=== PATIENT | female | born 1995 | race African-American/Black ===

== ENCOUNTER 2022-09-07 03:33 | Emergency (ER) | payer MEDICAID ==
[~2022-09-07] VITALS: Ht 165.1 cm; Wt 73.5 kg
[2022-09-07 04:20] LABS: HEMATOCRIT. 42.3 % (36.0-48.0); HEMOGLOBIN. 14.2 g/dL (12.0-16.0); MEAN CORPUSCULAR HEMOGLOBIN 30.5 pg (28.0-32.0); PLATELET 326 x1000/uL (130-400); RED BLOOD CELL COUNT 4.65 mill/uL (4.2-5.4)
[2022-09-07 04:25] LABS: CHLORIDE 100 mEq/L (98-107)
[2022-09-07 04:39] LABS: HCG SCREEN NEGATIVE
[2022-09-07 05:01] LABS: PLATELET ESTIMATE NORMAL
[2022-09-07] MEDS ORDERED: KETOROLAC 60MG/2ML VIAL IM SCH (08:30)
[2022-09-07] MEDS ORDERED: FAMOTIDINE 20MG TABLET PO SCH (08:30)
[2022-09-07] MEDS ORDERED: METRONIDAZOLE 500 MG PREMIX 100 ML IV ONE (09:30)
[2022-09-07] MEDS ORDERED: KETOROLAC 30MG/ML VIAL IM SCH (09:30)
[2022-09-07] MEDS ORDERED: CEFTRIAXONE 1GM PREMIX 50 ML IV ONE (09:30)
[2022-09-07 09:33] LABS: CLARITY URINE CLEAR (CLEAR); COLOR URINE DARK YELLOW (YELLOW); KETONES URINE TRACE (NEGATIVE); LEUKOCYTE ESTERASE URINE 2+ (NEGATIVE); NITRITE URINE NEGATIVE (NEGATIVE); OCCULT BLOOD URINE TRACE (NEGATIVE); PROTEIN URINE 1+ (NEGATIVE); SPECIFIC GRAVITY URINE 1.015 (1.005-1.030)
[2022-09-07] MEDS ORDERED: KETOROLAC 15MG/ML VIAL IV ONE (13:30)
[2022-09-07] MEDS ORDERED: HYDROCODONE/ACETAMINOPHEN 5/325MG TABLET PO ONE (13:30)
[2022-09-07] MEDS ORDERED: CEPH500C2 MT (13:31)
[2022-09-07] MEDS ORDERED: IBUP-2030 MT (13:31)
[2022-09-07 13:54] VITALS: BP 115/70
== END 2022-09-07 13:30 | disposition admitted as inpatient to this hospital (09) ==
LOC: ER 03:33 → CANBEDREQ 13:03 → ER 13:30
DX: K80.50 Calculus of bile duct without cholangitis or cholecystitis without obstruction (principal); J45.909 Unspecified asthma, uncomplicated
CPT/HCPCS: 36415; 76705; 80053; 81003; 83690; 84703; 85025; 87086; 93005; 96365; 96367; 96372; 96375; 99285; J0696; J1885; Z7610; J3490

== ENCOUNTER 2023-09-28 20:02 | Emergency (ER) | payer MEDICAID ==
[~2023-09-28] VITALS: Ht 167.6 cm; Wt 91.0 kg
[~2023-09-28 20:02] MED LIST: CEPH500C2 MT; IBUP-2030 MT
[2023-09-28 20:29] VITALS: O2SAT 100
[2023-09-28] MEDS ORDERED: DIAZEPAM 5 MG TABLET PO ONE (21:00)
[2023-09-28] MEDS: DIAZEPAM 5 MG TABLET PO NR (21:40)
[2023-09-28 22:00] LABS: BASOPHILS % 0.4 % (0.0-2.0); EOSINOPHILS % 0.7 % (0.0-5.0); HEMATOCRIT. 39.7 % (36.0-48.0); HEMOGLOBIN. 13.3 g/dL (12.0-16.0); LYMPHOCYTES % 15.7 % (20.0-50.0); MEAN CORPUSCULAR HEMOGLOBIN 31.2 pg (28.0-32.0); MEAN CORPUSCULAR HGB CONC 33.6 g/dL (31.0-37.0); MEAN CORPUSCULAR VOLUME 92.9 fL (81.0-99.0); MEAN PLATELET VOLUME 8.5 fl (7.4-10.4); NEUTROPHILS % 77.2 % (40.0-76.0); PLATELET 289 x1000/uL (130-400); RED BLOOD CELL COUNT 4.27 mill/uL (4.2-5.4); RED CELL DISTRIBUTION WIDTH 13.4 % (11.6-14.6); WHITE BLOOD COUNT 8.8 x1000/uL (4.5-11.0)
[2023-09-28 22:03] LABS: CHLORIDE 105 mEq/L (98-107); POTASSIUM 3.6 mEq/L (3.5-5.1); SODIUM 137 mEq/L (136-145)
[2023-09-28 22:04] LABS: CARBON DIOXIDE 26 mEq/L (21-32)
[2023-09-28 22:09] LABS: CREATININE 0.8 mg/dL (0.6-1.0); GLUCOSE 91 mg/dL (70-105); UREA NITROGEN BLOOD 8 mg/dL (9-23)
[2023-09-28 22:11] LABS: ALANINE AMINOTRANSFERASE 17 IU/L (10-49); ALBUMIN 4.7 g/dL (3.2-4.8); ASPARTATE AMINOTRANSFERASE 24 IU/L (<34); BILIRUBIN TOTAL 0.5 mg/dL (0.1-1.0); PROTEIN TOTAL 8.2 g/dL (6.0-8.3)
[2023-09-28 22:14] LABS: HCG SCREEN NEGATIVE
[2023-09-29 00:41] VITALS: BP 131/74; PULSE 88; RESP 14; TEMP 97.9
== END 2023-09-29 00:43 | disposition home or self-care (01) ==
LOC: ER 20:02
DX: F41.0 Panic disorder [episodic paroxysmal anxiety] (principal); J45.909 Unspecified asthma, uncomplicated
CPT/HCPCS: 36415; 80053; 84703; 85025; 93005; 99284

== ENCOUNTER 2023-10-20 20:59 | Emergency (ER) | payer MEDICAID ==
[~2023-10-20] VITALS: Ht 167.6 cm; Wt 95.0 kg
[2023-10-20 21:14] VITALS: TEMP 98.5; O2SAT 97
[2023-10-20 22:21] LABS: BASOPHILS % 0.5 % (0.0-2.0); EOSINOPHILS % 1.7 % (0.0-5.0); HEMATOCRIT. 39.8 % (36.0-48.0); HEMOGLOBIN. 13.3 g/dL (12.0-16.0); LYMPHOCYTES % 26.9 % (20.0-50.0); MEAN CORPUSCULAR HGB CONC 33.5 g/dL (31.0-37.0); MEAN CORPUSCULAR VOLUME 92.5 fL (81.0-99.0); MONOCYTES % 8.4 % (2.0-8.0); NEUTROPHILS % 62.5 % (40.0-76.0); PLATELET 305 x1000/uL (130-400); WHITE BLOOD COUNT 7.6 x1000/uL (4.5-11.0)
[2023-10-20 22:38] LABS: CHLORIDE 106 mEq/L (98-107); POTASSIUM 3.8 mEq/L (3.5-5.1); SODIUM 139 mEq/L (136-145)
[2023-10-20 22:39] LABS: CARBON DIOXIDE 28 mEq/L (21-32)
[2023-10-20 22:40] LABS: CALCIUM 9.9 mg/dL (8.7-10.4)
[2023-10-20 22:44] LABS: CREATININE 0.9 mg/dL (0.6-1.0); GLUCOSE 103 mg/dL (70-105); UREA NITROGEN BLOOD 7 mg/dL (9-23)
[2023-10-20 23:06] LABS: CLARITY URINE CLEAR (CLEAR); COLOR URINE YELLOW (YELLOW); GLUCOSE URINE NEGATIVE (NEGATIVE); KETONES URINE NEGATIVE (NEGATIVE); LEUKOCYTE ESTERASE URINE NEGATIVE (NEGATIVE); NITRITE URINE NEGATIVE (NEGATIVE); OCCULT BLOOD URINE NEGATIVE (NEGATIVE); PH URINE 7.5 (4.5-8.0); PROTEIN URINE NEGATIVE (NEGATIVE); SPECIFIC GRAVITY URINE 1.005 (1.005-1.030); UROBILINOGEN URINE 0.2 E.U./dL (0.2-1.0)
[2023-10-20 23:29] LABS: HCG SCREEN NEGATIVE
[2023-10-21 03:29] VITALS: BP 159/104; PULSE 80; RESP 18
== END 2023-10-21 03:36 | disposition home or self-care (01) ==
LOC: ER 20:59
DX: R53.1 Weakness (principal); J45.909 Unspecified asthma, uncomplicated; Z98.890 Other specified postprocedural states
CPT/HCPCS: 36415; 80048; 81003; 81025; 84703; 85025; 93005; 99284